=== PATIENT | female | born 1975 | race Caucasian/White ===

== ENCOUNTER 2020-12-24 18:51 | Emergency (ER) | payer MEDICAID ==
[~2020-12-24] VITALS: Ht 172.7 cm; Wt 79.0 kg
[2020-12-24 19:43] LABS: BASOPHILS % 0.5 % (0.0-2.0); HEMATOCRIT. 34.2 % (36.0-48.0); HEMOGLOBIN. 11.1 g/dL (12.0-16.0); MEAN CORPUSCULAR HEMOGLOBIN 25.1 pg (28.0-32.0); MEAN CORPUSCULAR VOLUME 77.1 fL (81.0-99.0); MEAN PLATELET VOLUME 8.4 fl (7.4-10.4); MONOCYTES % 13.9 % (2.0-8.0); NEUTROPHILS % 58.6 % (40.0-76.0); PLATELET 286 x1000/uL (130-400); RED BLOOD CELL COUNT 4.43 mill/uL (4.2-5.4); RED CELL DISTRIBUTION WIDTH 16.6 % (11.6-14.6)
[2020-12-24 19:45] LABS: CHLORIDE 105 mEq/L (98-107)
[2020-12-24 19:47] LABS: PROTHROMBIN TIME 10.3 sec (9.6-11.0)
[2020-12-24 19:50] LABS: ETHANOL BLOOD < 10 mg/dL
[2020-12-24] MEDS: FAMOTIDINE 20MG/2ML VIAL IV STA (19:50)
[2020-12-24] MEDS: ONDANSETRON HCL 4MG/2ML INJ IV STA (19:50)
[2020-12-24] MEDS: MORPHINE SULFATE 4 MG/ML CPJ (NOT FOR IM USE) IV STA (19:51)
[2020-12-24] MEDS: SODIUM CHLORIDE 0.9% 1,000 ML IV ONE (19:51)
[2020-12-24 21:05] LABS: CLARITY URINE CLEAR (CLEAR); COLOR URINE YELLOW (YELLOW); KETONES URINE NEGATIVE (NEGATIVE); LEUKOCYTE ESTERASE URINE NEGATIVE (NEGATIVE); NITRITE URINE NEGATIVE (NEGATIVE); OCCULT BLOOD URINE 3+ (NEGATIVE); PROTEIN URINE 4+ (NEGATIVE); SPECIFIC GRAVITY URINE 1.022 (1.005-1.030); UROBILINOGEN URINE 0.2 E.U./dL (0.2-1.0)
[2020-12-24] MEDS ORDERED: IOHEXOL-300 100 ML BOTTLE ONE (23:39)
[2020-12-24] MEDS ORDERED: DIATR MEGLU/DIATRIZOATE SOLN 30ML ONE (23:50)
[2020-12-25 01:30] VITALS: BP 158/94
[2020-12-25] MEDS ORDERED: ONDA4TAB5 MT (01:31)
== END 2020-12-25 03:37 | disposition home or self-care (01) ==
LOC: ER 18:51
DX: G89.18 Other acute postprocedural pain (principal); R10.13 Epigastric pain; I10 Essential (primary) hypertension; R06.02 Shortness of breath; R11.0 Nausea; E86.0 Dehydration; F12.10 Cannabis abuse, uncomplicated; Z79.899 Other long term (current) drug therapy; Z88.8 Allergy status to other drugs, medicaments and biological substances; Z86.73 Personal history of transient ischemic attack (TIA), and cerebral infarction without residual deficits; Z98.890 Other specified postprocedural states
CPT/HCPCS: 36415; 71045; 74177; 80053; 80320; 81003; 83605; 83690; 85025; 85610; 96361; 96374; 96375; 99285; J2270; J2405; J3490; J7030; Q9963; Q9967; G0480